=== PATIENT | male | born 1965 | race Caucasian/White ===

== ENCOUNTER 2021-10-17 07:15 | Day surgery (SDC) | payer OTHER ==
[~2021-10-17] VITALS: Ht 180.3 cm; Wt 115.4 kg
[~2021-10-17 07:15] MED LIST: LEVSOD100 PO; MULVITA PO
--- NOTE | 2021-10-17 07:15 | NUR ---
Ambulatory in Day Surgery Surgical site prepped with 2% Chlorhexidine cloth wipe. Pamella Paws warming gown applied. History, Chart, Medications and Allergies reviewed before start of procedure.Lungs clear T/O to Auscultation. Patient confirms NPO status and agrees with scheduled surgery. Pre-Op teaching done. Pt verbalizes understanding. Patient States Post-Procedure ride home has been arranged. Patient reports completing Chlorhexadine shower X2 prior to admission to hospital.
--- NOTE | 2021-10-17 09:55 | NUR ---
10/17/21 0955 Lucy Mclaughlin 2G ANCEF GIVEN TO PT. BY ANESTHESIOLOGIST AT 0726
--- NOTE | 2021-10-17 10:41 | NUR ---
Patient up to Ambulate independently. Gait steady. Discharge instructions reviewed with patient. Patient verbalizes understanding. Copy given to patient to take home. Dressing to procedure site clean, dry, intact with no visible drainage, swelling, erythema or bruising noted. Patient States Post-Procedure ride home has been arranged. Discharged via wheelchair to private car for ride home.
== END 2021-10-17 22:58 | disposition home or self-care (01) ==
LOC: ORSCMMR 07:15 → ORD 07:30 → ORSCMMR 22:58
PROVIDERS: Surgery
PROC: 0WUF0JZ Supplement Abdominal Wall with Synthetic Substitute, Open Approach (ICD-10-PCS; principal; 2021-10-17 07:30)
DX: K42.9 Umbilical hernia without obstruction or gangrene (principal); K43.9 Ventral hernia without obstruction or gangrene; Z87.891 Personal history of nicotine dependence; E03.9 Hypothyroidism, unspecified; E78.5 Hyperlipidemia, unspecified; E66.9 Obesity, unspecified; Z68.34 Body mass index [BMI] 34.0-34.9, adult; Z79.899 Other long term (current) drug therapy
CPT/HCPCS: A9270; C1781; J0171; J0690; J1100; J1885; J2250; J2405; J2704; J3010; J7120